=== PATIENT | female | born 1945 | race African-American/Black ===

== ENCOUNTER → 2016-11-18 | Outpatient (CLI) | payer OTHER ==
[~2016-11-18] MED LIST: AMLODIPINE BESY10 MG PO; CRESTOR10 MG PO; DIOVAN; GLUCOTROL5 MG PO; IBUPROFEN 800800 MG PO; LEVOTHROID; LISINOPRIL20 MG PO; LOPRESSOR50 PO; NORCO 5-325 TA1 EACH PO; VALIUM5 MG PO
== END ==
LOC: RAD 12:50
DX: Z12.31 Encounter for screening mammogram for malignant neoplasm of breast (principal)

== ENCOUNTER → 2017-06-19 | Outpatient (CLI) | payer OTHER | LOC: RAD 04:07 | DX: N60.02 Solitary cyst of left breast (principal); N60.01 Solitary cyst of right breast ==

== ENCOUNTER → 2018-08-02 | Outpatient (CLI) | payer OTHER | LOC: RAD 12:27 | DX: Z12.31 Encounter for screening mammogram for malignant neoplasm of breast (principal); I10 Essential (primary) hypertension; E11.9 Type 2 diabetes mellitus without complications; E78.5 Hyperlipidemia, unspecified ==

== ENCOUNTER 2018-09-08 07:33 | Emergency (ER) | payer OTHER ==
[~2018-09-08] VITALS: Ht 167.6 cm; Wt 79.4 kg
--- NOTE | ~2018-09-08 | EKG ---
[place] [address] [email or web address] [email or web address] [address] ELECTROCARDIOGRAM REPORT Name: MELY HOWELL [id number] Admission: 09/08/18 Attend Phys: Discharge: 09/08/18 Date of : 43 Report #: [id number] THIS REPORT FOR: //name// [facility] ED Test Date: 2018-09-08 Test Time: 08:01:51 Pat Name: MELY HOWELL Department: Room: Gender: F Field Operations Supervisor: : 1945 Requested By: Madonna Cat Order Number: [id number] MD: Reinier Chauhan Measurements Intervals [place] Rate: 70 P: 17 [place]: 175 QRS: -27 QRSD: 100 T: 54 QT: 405 QTc: 437 Interpretive Statements Sinus rhythm Probable left atrial enlargement Left ventricular hypertrophy Compared to ECG 12/09/2015 01:46:42 No significant changes Electronically Signed On 09-09-2018 7:38:59 [employer]PPORTIVE [employer]PLOYMENT CASE MANAGER by Reinier Chauhan [email or web address] <ELECTRONICALLY SIGNED> By: Reinier Chauhan MD, [facility] 09/09/18 0738 0801 08 Reinier Chauhan MD, FACC /EPI
[2018-09-08 08:26] LABS: HEMATOCRIT 36.6 % (37.0-47.0); HEMOGLOBIN 11.7 gm/dL (12.0-15.0); MCH 26.2 pg (26.0-34.0); MCV 81.8 fL (80.0-100.0); RBC 4.47 mil/uL (4.20-5.00); RDW 14.1 % (10.5-14.5); WBC 5.8 thou/uL (4.0-11.0)
[2018-09-08 08:32] LABS: ANION GAP 9 mmol/L (7-16); BUN 22 mg/dL (7-18); CALCIUM 9.2 mg/dL (8.5-10.1); CHLORIDE 102 mmol/L (98-107); CO2 29 mmol/L (21-32); CREATININE 1.3 mg/dL (0.6-1.0); GLUCOSE 243 mg/dL (74-106); POTASSIUM 3.8 mmol/L (3.5-5.1); SODIUM 140 mmol/L (136-145)
[2018-09-08 08:41] LABS: ALBUMIN 3.6 g/dL (3.4-5.0); LIPASE 198 U/L (73-393); SGOT 17 U/L (15-37); SGPT 24 U/L (30-65); TOTAL BILIRUBIN 0.7 mg/dL (<0.1-1.0); TROPONIN-I <0.06 ng/mL (<0.06)
[2018-09-08 09:20] LABS: URINE BILIRUBIN NEGATIVE (Negative); URINE BLOOD NEGATIVE (Negative); URINE CLARITY CLEAR; URINE COLOR YELLOW; URINE GLUCOSE-RANDOM* 1+ (Negative); URINE KETONES NEGATIVE (Negative); URINE LEUKOCYTES-REFLEX NEGATIVE (Negative); URINE NITRITE-REFLEX NEGATIVE (Negative); URINE PROTEIN (DIPSTICK) NEGATIVE (Negative); URINE UROBILINOGEN 0.2 E.U./dl (0.2-1.0)
[2018-09-08] MEDS ORDERED: MIRALAX17 GM PO (11:16)
[2018-09-08 11:44] VITALS: BP 155/72
== END 2018-09-08 11:47 | disposition home or self-care (01) ==
LOC: ER 07:33
PROVIDERS: Student in an Organized Health Care Education/Training Program
DX: K59.00 Constipation, unspecified (principal); R05 Cough; I10 Essential (primary) hypertension; E11.9 Type 2 diabetes mellitus without complications; Z90.710 Acquired absence of both cervix and uterus

== ENCOUNTER → 2019-07-08 | Outpatient (CLI) | payer OTHER ==
[~2019-07-08] MED LIST changes: +MIRALAX17 GM PO
== END ==
LOC: RAD 01:17
DX: Z12.31 Encounter for screening mammogram for malignant neoplasm of breast (principal)

== ENCOUNTER 2019-10-25 10:08 | Emergency (ER) | payer OTHER ==
[~2019-10-25] VITALS: Ht 167.6 cm; Wt 79.4 kg
[2019-10-25] MEDS ORDERED: ASA81BEC PO (11:11)
[2019-10-25] MEDS ORDERED: DOXYCYCLINE 10100 MG PO (13:03)
[2019-10-25 13:12] VITALS: BP 156/96
== END 2019-10-25 13:13 | disposition home or self-care (01) ==
LOC: ER 10:08
DX: J18.9 Pneumonia, unspecified organism (principal); I10 Essential (primary) hypertension; E11.9 Type 2 diabetes mellitus without complications; Z90.710 Acquired absence of both cervix and uterus

== ENCOUNTER → 2020-04-11 | Outpatient (CLI) | payer OTHER ==
[~2020-04-11] MED LIST changes: +ASA81BEC PO; +DOXYCYCLINE 10100 MG PO
== END ==
LOC: NUC 14:35
PROVIDERS: ATTEND Neuromusculoskeletal Medicine & OMM
DX: M81.0 Age-related osteoporosis without current pathological fracture (principal); M85.88 Other specified disorders of bone density and structure, other site

== ENCOUNTER → 2020-08-09 | Outpatient (CLI) | payer OTHER | LOC: ULTRA 11:23 | PROVIDERS: ATTEND Internal Medicine Nephrology | DX: Z12.31 Encounter for screening mammogram for malignant neoplasm of breast (principal); N18.30 Chronic kidney disease, stage 3 unspecified; N20.0 Calculus of kidney ==

== ENCOUNTER 2020-08-12 12:43 | Emergency (ER) | payer OTHER ==
[~2020-08-12] VITALS: Ht 167.6 cm; Wt 76.7 kg
[2020-08-12 13:45] LABS: ABSOLUTE NEUTROPHILS 3.6 thou/uL (1.4-8.2); BASOPHILS 0.5 % (0.0-2.0); EOSINOPHILS 1.4 % (0.0-3.0); HEMATOCRIT 31.5 % (37.0-47.0); HEMOGLOBIN 10.2 gm/dL (12.0-15.0); MCH 26.2 pg (26.0-34.0); MCHC 32.3 g/dL (28.0-37.0); MCV 81.1 fL (80.0-100.0); MONOCYTES 8.7 % (1.0-8.0); PLATELET COUNT 236 thou/uL (150-400); POLYS 71.4 % (36.0-66.0); RBC 3.89 mil/uL (4.20-5.00); RDW 14.5 % (10.5-14.5)
[2020-08-12 13:49] LABS: ANION GAP 6 mmol/L (7-16); BUN 32 mg/dL (7-18); CALCIUM 9.1 mg/dL (8.5-10.1); CHLORIDE 102 mmol/L (98-107); CO2 30 mmol/L (21-32); CREATININE 1.5 mg/dL (0.6-1.0); GLUCOSE 113 mg/dL (74-106); POTASSIUM 3.8 mmol/L (3.5-5.1); SODIUM 138 mmol/L (136-145)
[2020-08-12 13:58] LABS: TROPONIN-I <0.06 ng/mL (<0.06)
[2020-08-12] MEDS ORDERED: MELOXICAM15 MG PO (16:16)
[2020-08-12 16:29] VITALS: BP 201/86
--- NOTE | 2020-08-13 07:31 | EKG ---
[facility] [place] [address] ELECTROCARDIOGRAM REPORT Name: MELY HOWELL Room #: DEP [facility]#: [id number] Admission: 08/12/20 Attend Phys: Discharge: 08/12/20 Date of : 43 Report #: [id number] THIS REPORT FOR: cc: Freddy Pruitt Steven F. 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 : 1945 Requested By: Willis Li Order Number: [id number] MD: Bo Bates Measurements Intervals [place] Rate: 79 P: 15 [place]: 169 QRS: -20 QRSD: 83 T: 74 QT: 385 QTc: 442 Interpretive Statements Sinus rhythm Probable left atrial enlargement Left ventricular hypertrophy Baseline wander in lead(s) V5 Compared to ECG 09/08/2018 08:01:51 No significant changes Electronically Signed On 08-13-2020 7:30:57 CDT by Bo Bates [email or web address] <ELECTRONICALLY SIGNED> By: Bo Bates MD, FACC 08/13/20 0730 1303 1303 Bo Bates MD, [facility] /EPI
== END 2020-08-12 16:29 | disposition home or self-care (01) ==
LOC: ER 12:43
PROVIDERS: Nurse Practitioner
DX: M79.602 Pain in left arm (principal); I10 Essential (primary) hypertension; E11.9 Type 2 diabetes mellitus without complications; Z90.710 Acquired absence of both cervix and uterus; Z79.899 Other long term (current) drug therapy; Z79.82 Long term (current) use of aspirin

== ENCOUNTER → 2021-08-05 | Outpatient (CLI) | payer OTHER ==
[~2021-08-05] MED LIST changes: +MELOXICAM15 MG PO
== END ==
LOC: BC 12:36
PROVIDERS: ATTEND Neuromusculoskeletal Medicine & OMM
DX: Z12.31 Encounter for screening mammogram for malignant neoplasm of breast (principal)